=== PATIENT | female | born 1985 | race Caucasian/White ===

== ENCOUNTER 2017-04-17 21:44 | Emergency (ER) | payer SELFPAY | END 2017-04-17 22:00 | disposition left against medical advice (07) | LOC: ED 21:44 | DX: Z53.21 Procedure and treatment not carried out due to patient leaving prior to being seen by health care provider (principal) ==

== ENCOUNTER 2017-06-01 18:59 | Emergency (ER) | payer SELFPAY ==
[2017-06-01 19:54] LABS: MUDS CUTOFF CONCENTRATIONS CUTOFF CONC BELOW:
[2017-06-01 19:56] LABS: BASOPHILS # (AUTO) 0.1 10^3/uL (0.0-0.1); EOSINOPHILS # (AUTO) 0.1 10^3/uL (0.0-0.7); EOSINOPHILS % (AUTO) 1.2 %; HGB - HEMOGLOBIN 13.3 g/dL (12.0-16.0); LYMPHOCYTES # (AUTO) 1.7 10^3/uL (1.5-3.5); LYMPHOCYTES % (AUTO) 23.4 %; MEAN CORPUSCULAR HEMOGLOBIN 29.6 pg (27.0-31.0); MEAN CORPUSCULAR HGB CONC 32.8 g/dL (32.0-36.0); MEAN CORPUSCULAR VOLUME 90.4 fL (81.0-99.0); MEAN PLATELET VOLUME 7.1 fL (7.9-10.8); MONOCYTES # (AUTO) 0.5 10^3/uL (0.0-1.0); MONOCYTES % (AUTO) 6.5 %; NEUTROPHILS # (AUTO) 4.9 10^3/uL (1.5-6.6); NEUTROPHILS % (AUTO) 67.9 %; PLT - PLATELET COUNT 289 10^3/uL (130-450); RED BLOOD COUNT 4.49 10^6/uL (4.20-5.40); RED CELL DISTRIBUTION WIDTH 11.8 % (12.0-15.0); WHITE BLOOD COUNT 7.2 x10^3/uL (4.8-10.8)
[2017-06-01 20:04] LABS: BUN - BLOOD UREA NITROGEN 16 mg/dL (6-20); CALCIUM 9.3 mg/dL (8.5-10.3); CARBON DIOXIDE - CO2 25 mmol/L (21-32); CHLORIDE 104 mmol/L (101-111); CREATININE 0.7 mg/dL (0.4-1.0); GFR - MDRD 98 (>89); GLUCOSE 95 mg/dL (70-100); SODIUM 138 mmol/L (135-145)
[2017-06-01 20:09] LABS: HCG UR QUAL NEGATIVE
[2017-06-01] MEDS ORDERED: OLANZapine 10 MG VIAL IM STA (20:10)
[2017-06-01 20:15] LABS: AMPHETAMINE SCREEN,URINE POSITIVE (NEGATIVE); BENZODIAZEPINES SCREEN, URINE NEGATIVE (NEGATIVE); COCAINE SCREEN URINE NEGATIVE (NEGATIVE); METHADONE SCREEN, URINE NEGATIVE (NEGATIVE); METHAMPHETAMINES SCREEN, URINE POSITIVE (NEGATIVE); OPIATE SCREEN, URINE NEGATIVE (NEGATIVE); OXYCODONE SCREEN, URINE NEGATIVE (NEGATIVE); PROPOXYPHENE SCREEN, URINE NEGATIVE (NEGATIVE); TRICYCLIC ANTIDEPRESSANT,URINE NEGATIVE (NEGATIVE)
--- NOTE | 2017-06-02 00:42 | ED Physician Documentation ---
PD HPI MHE - Stated complaint Stated Complaint: MHE, MIGRAINE - Chief complaint Chief Complaint: Neuro - History obtained from History obtained from: Patient, Family, EMS - History of Present Illness Primary symptom: Psychosis, Aggressive behavior Timing - onset: Today Contributing factors: Substance abuse - drugs Similar symptoms before: No diagnosis Recently seen: Not recently seen - Additional information Additional information: Patient is a 31 year old female with unclear past medical history who is being brought in to the emergency department for agitation and altered mental status. Patient was reportedly delusion make quotations about god. Police were called to the house of the patient and they were bringing in the patient for evaluation. After patient was brought in she ran out side and made multiple comments about GOD, and was having florid delusion. Review of Systems Unable to obtain: Uncooperative PD PAST MEDICAL HISTORY - Past Medical History Past Medical History: Yes Respiratory: Asthma Other Past Medical History: Unkown HX- pt. not forthcoming. Per mother on "pain mgt." Vicodin abuse. - Past Surgical History Past Surgical History: Yes - Present Medications Home Medications: Ambulatory Orders Medication Instructions Recorded Confirmed Home Medications Unobtainable 06/01/17 06/01/17 [HOME MEDICATIONS UNOBTAINABLE] - Allergies Allergies/Adverse Reactions: Allergies Allergy/AdvReac Type Severity Reaction Status Date / Time ampicillin Allergy Hives Verified 06/01/17 23:45 - Social History Does the pt smoke?: Yes Smoking Status: Current every day smoker Does the pt drink ETOH?: No Does the pt have substance abuse?: Yes Substance Use and Type: Meth, Prescription Pills - Immunizations Immunizations are current?: No - POLST Patient has POLST: No PD ED PE NORMAL - HEENT HEENT: Atraumatic - Cardiac Cardiac: RRR - Respiratory Respiratory: No respiratory distress - Abdomen Abdomen: Soft, Non distended - Extremities Extremities: No deformity - Neuro Neuro: No motor deficit Verbal: Confused PD ED PE EXPANDED - General General: Alert - Psych Psych: Agitated, Delusions Results - Vitals Vitals: Vital Signs - 24 hr 06/01/17 06/01/17 06/01/17 19:20 20:45 21:25 Temperature Heart Rate 111 H 82 83 Respiratory 20 18 16 Rate Blood Pressure 135/87 H 113/77 110/70 O2 Saturation 99 100 100 06/01/17 06/01/17 06/01/17 22:25 23:18 23:55 Temperature Heart Rate 82 79 74 Respiratory 15 16 14 Rate Blood Pressure 110/70 97/56 L 110/60 O2 Saturation 100 100 100 06/02/17 06/02/17 06/02/17 00:40 01:49 02:45 Temperature Heart Rate 70 80 74 Respiratory 16 14 16 Rate Blood Pressure 95/60 117/76 101/64 O2 Saturation 100 100 100 06/02/17 06/02/17 04:50 05:43 Temperature 36.4 C L Heart Rate 84 72 Respiratory 14 16 Rate Blood Pressure 106/74 108/74 O2 Saturation 100 100 Oxygen O2 Source Room air - Labs Labs: Laboratory Tests 06/01/17 06/01/17 06/01/17 19:45 19:45 19:51 WBC 7.2 RBC 4.49 Hgb 13.3 Hct 40.6 MCV 90.4 MCH 29.6 MCHC 32.8 RDW 11.8 L Plt Count 289 MPV 7.1 L Neut # 4.9 Lymph # 1.7 [place] # 0.5 Eos # 0.1 Baso # 0.1 Absolute Nucleated RBC 0.00 Nucleated RBC % 0.0 Sodium Potassium Chloride Carbon Dioxide Anion Gap BUN Creatinine Estimated GFR (MDRD) Glucose Calcium Ur Specific [place] >=1.030 H Urine HCG, Qual NEGATIVE Urine Opiates Screen NEGATIVE Ur Oxycodone Screen NEGATIVE Urine Methadone Screen NEGATIVE Ur Propoxyphene Screen NEGATIVE Ur Barbiturates Screen NEGATIVE Ur Tricyclics Screen NEGATIVE Ur Phencyclidine Scrn NEGATIVE Ur Amphetamine Screen POSITIVE H U Methamphetamines Scrn POSITIVE H U Benzodiazepines Scrn NEGATIVE Urine Cocaine Screen NEGATIVE U Cannabinoids Screen NEGATIVE Ethyl Alcohol 06/01/17 19:51 WBC RBC Hgb Hct MCV MCH MCHC RDW Plt Count MPV Neut # Lymph # [place] # Eos # Baso # Absolute Nucleated RBC Nucleated RBC % Sodium 138 Potassium 3.8 Chloride 104 Carbon Dioxide 25 Anion Gap 9.0 BUN 16 Creatinine 0.7 Estimated GFR (MDRD) 98 Glucose 95 Calcium 9.3 Ur Specific [place] Urine HCG, Qual Urine Opiates Screen Ur Oxycodone Screen Urine Methadone Screen Ur Propoxyphene Screen Ur Barbiturates Screen Ur Tricyclics Screen Ur Phencyclidine Scrn Ur Amphetamine Screen U Methamphetamines Scrn U Benzodiazepines Scrn Urine Cocaine Screen U Cannabinoids Screen Ethyl Alcohol < 5.0 PD MEDICAL DECISION MAKING - ED course Complexity details: reviewed old records, reviewed results, re-evaluated patient , considered differential, d/w patient, d/w family ED course: Patient was seen and examined at bedside. Patient was agitated and was a risk to herself and others and had to be sedated. Patient was treated with 10mg of zyprexa IM. labs were drawn and urine was collected. Patient was positive for methamphetamine. Patient was observed overnight. In the morning, with mother at bedside patient was calm and cooperative. Patient denied suicidal or homicidal ideation. Patient was no longer delusional. Patient's symptoms were drug induced. patient required no further evaluation at this time and was stable for discharge with outpatient follow up. Departure - Departure Disposition: 01 Home, Self Care Clinical Impression: Methamphetamine abuse Condition: Good Instructions: Abuse Meth Abuse and Addiction, ED Stress React Follow-Up: primary,care provider [Other] Comments: Your symptoms last night were likely at least in part due to methamphetamine abuse. It can have multiple negative side effects on your physical and mental health. You should follow up with your doctor this week for further evaluation and care.
[2017-06-02 05:44] VITALS: BP 108/74
== END 2017-06-02 05:46 | disposition home or self-care (01) ==
LOC: ED 18:59
DX: F15.150 Other stimulant abuse with stimulant-induced psychotic disorder with delusions (principal); F17.200 Nicotine dependence, unspecified, uncomplicated
CPT/HCPCS: 36415; 80048; 80306; 80320; 81025; 85025; 96372; 99284; 99285

== ENCOUNTER 2017-06-05 14:49 | Outpatient (CLI) | payer SELFPAY | END 2017-06-05 14:50 | disposition EMS.NT | LOC: EMS 14:49 | PROVIDERS: ATTEND Surgery | DX: R46.89 Other symptoms and signs involving appearance and behavior (principal) ==

== ENCOUNTER 2017-07-01 01:49 | Emergency (ER) | payer SELFPAY ==
[2017-07-01 01:58] VITALS: BP 124/92
[2017-07-01 02:29] LABS: BILIRUBIN,URINE NEGATIVE (NEGATIVE); GLUCOSE, URINE (UA) NEGATIVE (NEGATIVE); KETONES,URINE (UA) TRACE mg/dL (NEGATIVE); LEUKOCYTE ESTERASE, URINE NEGATIVE (NEGATIVE); NITRITE,URINE NEGATIVE (NEGATIVE); OCCULT BLOOD,URINE MODERATE (NEGATIVE); PH,URINE 6.5 PH (5.0-7.5); PROTEIN,URINE NEGATIVE (NEGATIVE); UROBILINOGEN,URINE 4 E.U./dL (NORMAL)
[2017-07-01 02:35] LABS: CLARITY,URINE CLEAR (CLEAR); HCG UR QUAL NEGATIVE
[2017-07-01 02:37] LABS: BACTERIA,URINE Moderate /HPF (None Seen); MUCUS,URINE Moderate Strands; SQUAMOUS EPITHELIAL CELL,UR FEW Squamous (<= Few)
--- NOTE | 2017-07-01 02:49 | ED Physician Documentation ---
PD HPI SKIN - Stated complaint Stated Complaint: BACK RASH - Chief complaint Chief Complaint: Wound - History obtained from History obtained from: Patient, Friend - History of Present Illness Timing - onset: Chronic Timing - details: Gradual onset Location: Back Quality / character: Painful Associated symptoms: No: Fever Similar symptoms before: No diagnosis Recently seen: Not recently seen - Additional information Additional information: patient is a 32 year old female with unknown past medical history who is presenting to the emergency department for multiple complaints. patient states that she wanted to know why she had a rash on her back. She also wanted blood tests to see if everything was in balance. Patient also stated that sometimes she did not urinate enough and her stools were not regular. Patient appeared to be under the influence of some type of sympathomimetic Review of Systems Unable to obtain: Intoxicated PD PAST MEDICAL HISTORY - Past Medical History Past Medical History: Yes Respiratory: Asthma Psych: Other Other Past Medical History: Drug abuse - Past Surgical History Past Surgical History: Yes - Present Medications Home Medications: Ambulatory Orders Medication Instructions Recorded Confirmed Home Medications Unobtainable 06/01/17 06/01/17 [HOME MEDICATIONS UNOBTAINABLE] - Allergies Allergies/Adverse Reactions: Allergies Allergy/AdvReac Type Severity Reaction Status Date / Time ampicillin Allergy Hives Verified 07/01/17 01:57 - Social History Does the pt smoke?: Yes Smoking Status: Current every day smoker Does the pt drink ETOH?: No Does the pt have substance abuse?: Yes - Immunizations Immunizations are current?: No - POLST Patient has POLST: No PD ED PE NORMAL - Vitals Vital signs reviewed: Yes - General General: Alert and oriented X 3 - HEENT HEENT: Atraumatic - Cardiac Cardiac: RRR - Respiratory Respiratory: No respiratory distress - Abdomen Abdomen: Non distended - Neuro Neuro: No motor deficit, Normal speech PD ED PE EXPANDED - Derm Derm: Rash (folliculitis on patient's back and arms, ), Pick biswas - GCS Eye Opening: Spontaneous Motor: Obeys Commands Verbal: Oriented Total: 15 - Psych Psych: Flight of ideas Results - Vitals Vitals: Vital Signs - 24 hr 07/01/17 01:54 Heart Rate 98 Respiratory 16 Rate Blood Pressure 124/92 H O2 Saturation 100 Oxygen O2 Source Room air - Labs Labs: Laboratory Tests 07/01/17 02:07 Urine Color YELLOW Urine Clarity CLEAR Urine pH 6.5 Ur Specific [place] 1.020 Urine Protein NEGATIVE Urine Glucose (UA) NEGATIVE Urine Ketones TRACE Urine Occult Blood MODERATE H Urine Nitrite NEGATIVE Urine Bilirubin NEGATIVE Urine Urobilinogen 4 H Ur Leukocyte Esterase NEGATIVE Urine RBC 6-10 H Urine WBC 0-3 Ur Squamous Epith Cells FEW Squamous Urine Bacteria Moderate H Urine Mucus Moderate Strands Ur Microscopic Review INDICATED Urine Culture Comments INDICATED Urine HCG, Qual NEGATIVE PD MEDICAL DECISION MAKING - ED course Complexity details: reviewed old records, reviewed results, considered differential, d/w patient ED course: Patient was seen and examined at bedside. Urine was collected and sent. patient walked out while awaiting urinalysis results. patient was with her friend and no need to restrain the patient. Departure - Departure Disposition: ED [place] Clinical Impression: Folliculitis Condition: Good
== END 2017-07-01 02:05 | disposition left against medical advice (07) ==
LOC: ED 01:49
DX: L73.9 Follicular disorder, unspecified (principal); F17.200 Nicotine dependence, unspecified, uncomplicated
CPT/HCPCS: 81001; 81003; 81025; 87077; 87086; 99282

== ENCOUNTER 2017-07-05 01:58 | Outpatient (CLI) | payer SELFPAY | END 2017-07-05 01:59 | disposition EMS.NT | LOC: EMS 01:58 | PROVIDERS: ATTEND Surgery | DX: R46.89 Other symptoms and signs involving appearance and behavior (principal); R41.82 Altered mental status, unspecified ==

== ENCOUNTER 2017-07-05 03:12 | Outpatient (CLI) | payer SELFPAY | END 2017-07-05 03:13 | disposition critical access hospital (66) | LOC: EMS 03:12 | PROVIDERS: ATTEND Surgery | DX: Z03.89 Encounter for observation for other suspected diseases and conditions ruled out (principal) | CPT/HCPCS: A0425; A0429 ==

== ENCOUNTER 2017-07-05 03:50 | Emergency (ER) | payer SELFPAY ==
[2017-07-05] MEDS ORDERED: NITROFURANTOIN MACRO 100 MG CAPSULE PO STA (03:54)
[2017-07-05 03:55] VITALS: BP 133/88
--- NOTE | 2017-07-05 03:57 | ED Physician Documentation ---
History of Present Illness - Stated complaint Stated Complaint: DID METH, WANTS HIV TEST - Chief complaint Chief Complaint: MHE - History obtained from History obtained from: Patient, EMS - History of Present Illness Timing: Today - Additonal information Additional information: Patient is a 32 year old female who as brought in by ems who reportedly asked for an HIV test. EMS was called to the house multiple times this evening for various complaints so this time they decided to bring the patient in. patient admitted to using meth before calling ems. Upon initial evaluation in the emergency department patient states that she gets anxious and has trouble sleeping and would like some ativan or trazadone. patient states that she had a prescription but is unable to "transfer it over" since she moved. Patient denied any other physical complaints. Review of Systems Unable to obtain: Intoxicated PD PAST MEDICAL HISTORY - Past Medical History Respiratory: Asthma Psych: Other - Past Surgical History Past Surgical History: Yes - Present Medications Home Medications: Ambulatory Orders Medication Instructions Recorded Confirmed Nitrofurantoin Monohyd/M-Cryst 100 mg PO BID 5 Days capsule 07/05/17 [Macrobid 100 mg Capsule] - Allergies Allergies/Adverse Reactions: Allergies Allergy/AdvReac Type Severity Reaction Status Date / Time ampicillin Allergy Hives Verified 07/05/17 03:54 - Social History Does the pt smoke?: Yes Smoking Status: Current every day smoker Does the pt drink ETOH?: No Does the pt have substance abuse?: Yes - Immunizations Immunizations are current?: No - POLST Patient has POLST: No PD ED PE NORMAL - Vitals Vital signs reviewed: Yes - General General: No acute distress - HEENT HEENT: Atraumatic, Moist mucous membranes - Cardiac Cardiac: RRR - Respiratory Respiratory: No respiratory distress - Abdomen Abdomen: Non distended - Extremities Extremities: No deformity - Neuro Neuro: No motor deficit, Normal speech Eye Opening: Spontaneous PD ED PE EXPANDED - General General: Alert - Psych Psych: Other (Awake and alert but under the influence of sympathomimetic) Results - Vitals Vitals: Vital Signs - 24 hr 07/05/17 03:53 Temperature 36.7 C Heart Rate 93 Respiratory 18 Rate Blood Pressure 133/88 H O2 Saturation 99 Oxygen O2 Source Room air PD MEDICAL DECISION MAKING - ED course Complexity details: reviewed old records, reviewed results, re-evaluated patient , considered differential, d/w patient ED course: patient was seen and examined at bedside. previous notes were reviewed and patient did have a positive urine culture and was treated with macrobid. Patient was made aware that she would not be getting trazadone and the first thing to help with the insomnia would be to stop taking meth. Patient required no further inpatient testing and was stable for discharge with outpatient follow up. Departure - Departure Disposition: 01 Home, Self Care Clinical Impression: Methamphetamine abuse Condition: Stable Instructions: Abuse Meth Abuse and Addiction Follow-Up: primary,care provider [Other] - Within 3 Days Prescriptions: Nitrofurantoin Monohyd/M-Cryst [Macrobid 100 mg Capsule] 100 mg PO BID 5 Days capsule Comments: Your anxiety and insomnia is likely at least in part due to your methamphetamine abuse. It would not be jackson to start trazadone or another depressant at this time. The most important thing you can do is stop taking meth. You will be treated for a urinary tract infection which was found last time your were here. You will need to follow up with your doctor for your trazadone prescription. Discharge Date/Time: 07/05/17 04:05
== END 2017-07-05 04:05 | disposition home or self-care (01) ==
LOC: EDUNIT# → ED 03:50
DX: F15.10 Other stimulant abuse, uncomplicated (principal); F41.9 Anxiety disorder, unspecified; G47.00 Insomnia, unspecified; J45.909 Unspecified asthma, uncomplicated; F17.200 Nicotine dependence, unspecified, uncomplicated
CPT/HCPCS: 99283; A9270

== ENCOUNTER 2017-09-22 14:42 | Emergency (ER) | payer MEDICAID ==
[2017-09-22 15:14] LABS: BASOPHILS # (AUTO) 0.1 10^3/uL (0.0-0.1); BASOPHILS % (AUTO) 0.6 %; EOSINOPHILS # (AUTO) 0.1 10^3/uL (0.0-0.7); HGB - HEMOGLOBIN 14.6 g/dL (12.0-16.0); LYMPHOCYTES # (AUTO) 1.6 10^3/uL (1.5-3.5); LYMPHOCYTES % (AUTO) 17.1 %; MEAN CORPUSCULAR HEMOGLOBIN 30.4 pg (27.0-31.0); MEAN CORPUSCULAR HGB CONC 33.1 g/dL (32.0-36.0); MEAN CORPUSCULAR VOLUME 91.9 fL (81.0-99.0); MEAN PLATELET VOLUME 6.8 fL (7.9-10.8); MONOCYTES # (AUTO) 0.4 10^3/uL (0.0-1.0); MONOCYTES % (AUTO) 4.2 %; NEUTROPHILS % (AUTO) 77.1 %; PLT - PLATELET COUNT 361 10^3/uL (130-450); RED BLOOD COUNT 4.81 10^6/uL (4.20-5.40); RED CELL DISTRIBUTION WIDTH 11.9 % (12.0-15.0); WHITE BLOOD COUNT 9.1 x10^3/uL (4.8-10.8)
[2017-09-22 15:29] LABS: MUDS CUTOFF CONCENTRATIONS CUTOFF CONC BELOW:
[2017-09-22 15:34] LABS: GLUCOSE, URINE (UA) NEGATIVE (NEGATIVE); KETONES,URINE (UA) TRACE mg/dL (NEGATIVE); LEUKOCYTE ESTERASE, URINE NEGATIVE (NEGATIVE); NITRITE,URINE NEGATIVE (NEGATIVE); OCCULT BLOOD,URINE NEGATIVE (NEGATIVE); PROTEIN,URINE TRACE mg/dL (NEGATIVE); UROBILINOGEN,URINE 0.2 (NORMAL) E.U./dL (NORMAL)
[2017-09-22 15:38] LABS: ALBUMIN 3.9 g/dL (3.2-5.5); ALKALINE PHOSPHATASE 59 IU/L (42-121); ALT ALANINE AMINOTRANSFERASE 19 IU/L (10-60); AST ASPARTATE AMINOTRANSFERASE 18 IU/L (10-42); BILIRUBIN,TOTAL 0.6 mg/dL (0.2-1.0); BUN - BLOOD UREA NITROGEN 13 mg/dL (6-20); CALCIUM 9.5 mg/dL (8.5-10.3); CARBON DIOXIDE - CO2 29 mmol/L (21-32); CHLORIDE 101 mmol/L (101-111); CREATININE 0.7 mg/dL (0.4-1.0); GFR - MDRD 97 (>89); GLUCOSE 69 mg/dL (70-100); LIPASE 25 U/L (22-51); SALICYLATE < 6.0 mg/dL; SODIUM 135 mmol/L (135-145); TOTAL PROTEIN 7.9 g/dL (6.7-8.2)
[2017-09-22 15:39] LABS: ACETAMINOPHEN < 10 ug/mL (10-30)
[2017-09-22 15:39] LABS: BILIRUBIN,URINE NEGATIVE (NEGATIVE); CLARITY,URINE CLOUDY (CLEAR); HCG UR QUAL NEGATIVE; ICTOTEST,URINE NEGATIVE
[2017-09-22 15:51] LABS: AMPHETAMINE SCREEN,URINE POSITIVE (NEGATIVE); BENZODIAZEPINES SCREEN, URINE NEGATIVE (NEGATIVE); COCAINE SCREEN URINE NEGATIVE (NEGATIVE); METHADONE SCREEN, URINE NEGATIVE (NEGATIVE); METHAMPHETAMINES SCREEN, URINE POSITIVE (NEGATIVE); OPIATE SCREEN, URINE NEGATIVE (NEGATIVE); OXYCODONE SCREEN, URINE NEGATIVE (NEGATIVE); PROPOXYPHENE SCREEN, URINE NEGATIVE (NEGATIVE); TRICYCLIC ANTIDEPRESSANT,URINE NEGATIVE (NEGATIVE)
[2017-09-22 15:54] LABS: BACTERIA,URINE None Seen /HPF (None Seen); CASTS, URINE 0-2 Hyaline Casts /LPF; CRYSTALS,URINE 3-5 Uric Acid /LPF; RBC,URINE 0-5 /HPF (0-5); SQUAMOUS EPITHELIAL CELL,UR MANY Squamous (<= Few)
--- NOTE | 2017-09-22 16:03 | ED Physician Documentation ---
PD HPI MHE - Stated complaint Stated Complaint: MHE - Chief complaint Chief Complaint: MHE - History obtained from History obtained from: Patient, Police - History of Present Illness Primary symptom: Suicidal ideation, Homicidal ideation, Manic, Aggressive behavior Timing - onset: Today Pain level max: 0 Pain level now: 0 Contributing factors: Other (unknown) Similar symptoms before: Diagnosis (depression as a teenager, was on celexa) Recently seen: Not recently seen - Additional information Additional information: Patient is a 32-year-old female who presents to the emergency department after being called out for a violent episode by police. Police state that they witnessed her hallucinating and being aggressive. They placed her on an involuntary mental health hold and brought her to the emergency department. She is cooperative here. She denies any suicidal or homicidal ideation to me. She states that she has never attempted suicide before. States that she uses Adderall, but denies any methamphetamine use. Review of Systems Ten Systems: 10 systems reviewed and negative Constitutional: denies: Fever, Chills Ears: denies: Ear pain Nose: denies: Rhinorrhea / runny nose, Congestion Throat: denies: Sore throat Cardiac: denies: Chest pain / pressure Respiratory: denies: Cough, Wheezing GI: denies: Nausea, Vomiting, Diarrhea Skin: denies: Rash Musculoskeletal: denies: Neck pain, Back pain Neurologic: denies: Focal weakness, Numbness, Headache Psychiatric: reports: Hallucinations (States often has racing thoughts and sometimes talks to people who were not there, but she states that she does not think that she is talking to anybody during these episodes). denies: Suicidal, Homicidal PD PAST MEDICAL HISTORY - Past Medical History Past Medical History: Yes Respiratory: Asthma Psych: Other - Past Surgical History Past Surgical History: Yes - Present Medications Home Medications: Ambulatory Orders Medication Instructions Recorded Confirmed Nitrofurantoin Monohyd/M-Cryst 100 mg PO BID 5 Days capsule 07/05/17 [Macrobid 100 mg Capsule] - Allergies Allergies/Adverse Reactions: Allergies Allergy/AdvReac Type Severity Reaction Status Date / Time ampicillin Allergy Hives Verified 07/05/17 03:54 - Social History Does the pt smoke?: Yes Smoking Status: Current every day smoker Does the pt drink ETOH?: No Does the pt have substance abuse?: Yes - Immunizations Immunizations are current?: No - POLST Patient has POLST: No PD ED PE NORMAL - Vitals Vital signs reviewed: Yes - General General: Alert and oriented X 3, No acute distress, Well developed/nourished - HEENT HEENT: PERRL, Moist mucous membranes - Neck Neck: Supple, no meningeal sign - Cardiac Cardiac: RRR, Strong equal pulses - Respiratory Respiratory: No respiratory distress, Clear bilaterally - Abdomen Abdomen: Soft, Non tender, Non distended - Derm Derm: Warm and dry, No rash - Extremities Extremities: No edema, No calf tenderness / cord - Neuro Neuro: Alert and oriented X 3, melting furnace skimmer 2-12 intact, No motor deficit, No sensory deficit, Normal speech - Psych Psych: Normal mood, Other (Patient is speaking at a normal pace. She does perseverate on ideas, often referring back to Canelo or Nahid. States she has conspiracy theories) Results - Vitals Vitals: Vital Signs - 24 hr 09/22/17 14:44 Temperature 36.8 C Heart Rate 55 L Respiratory 14 Rate Blood Pressure 107/76 O2 Saturation 99 Oxygen O2 Source Room air - Labs Labs: Laboratory Tests 09/22/17 09/22/17 09/22/17 15:00 15:07 15:07 WBC 9.1 RBC 4.81 Hgb 14.6 Hct 44.2 MCV 91.9 MCH 30.4 MCHC 33.1 RDW 11.9 L Plt Count 361 MPV 6.8 L Neut # (Auto) 7.0 H Lymph # (Auto) 1.6 [place] # (Auto) 0.4 Eos # (Auto) 0.1 Baso # (Auto) 0.1 Absolute Nucleated RBC 0.01 Nucleated RBC % 0.1 Sodium 135 Potassium 3.5 Chloride 101 Carbon Dioxide 29 Anion Gap 5.0 L BUN 13 Creatinine 0.7 Estimated GFR (MDRD) 97 Glucose 69 L Calcium 9.5 Total Bilirubin 0.6 AST 18 ALT 19 Alkaline Phosphatase 59 Total Protein 7.9 Albumin 3.9 Globulin 4.0 Albumin/Globulin Ratio 1.0 Lipase 25 TSH Urine Color Urine Clarity Urine pH Ur Specific [place] Urine Protein Urine Glucose (UA) Urine Ketones Urine Occult Blood Urine Nitrite Urine Bilirubin Urine Urobilinogen Ur Leukocyte Esterase Urine RBC Urine WBC Ur Squamous Epith Cells Urine Crystals Urine Bacteria Urine Casts Ur Microscopic Review Urine Culture Comments Urine HCG, Qual Salicylates < 6.0 Urine Opiates Screen NEGATIVE Ur Oxycodone Screen NEGATIVE Urine Methadone Screen NEGATIVE Ur Propoxyphene Screen NEGATIVE Acetaminophen < 10 L Ur Barbiturates Screen NEGATIVE Ur Tricyclics Screen NEGATIVE Ur Phencyclidine Scrn NEGATIVE Ur Amphetamine Screen POSITIVE H U Methamphetamines Scrn POSITIVE H U Benzodiazepines Scrn NEGATIVE Urine Cocaine Screen NEGATIVE U Cannabinoids Screen NEGATIVE Ethyl Alcohol < 5.0 09/22/17 09/22/17 15:07 15:20 WBC RBC Hgb Hct MCV MCH MCHC RDW Plt Count MPV Neut # (Auto) Lymph # (Auto) [place] # (Auto) Eos # (Auto) Baso # (Auto) Absolute Nucleated RBC Nucleated RBC % Sodium Potassium Chloride Carbon Dioxide Anion Gap BUN Creatinine Estimated GFR (MDRD) Glucose Calcium Total Bilirubin AST ALT Alkaline Phosphatase Total Protein Albumin Globulin Albumin/Globulin Ratio Lipase TSH 1.91 Urine Color DARK YELLOW Urine Clarity CLOUDY Urine pH 6.0 Ur Specific [place] >=1.030 H Urine Protein TRACE Urine Glucose (UA) NEGATIVE Urine Ketones TRACE Urine Occult Blood NEGATIVE Urine Nitrite NEGATIVE Urine Bilirubin NEGATIVE Urine Urobilinogen 0.2 (NORMAL) Ur Leukocyte Esterase NEGATIVE Urine RBC 0-5 Urine WBC 0-3 Ur Squamous Epith Cells MANY Squamous H Urine Crystals 3-5 Uric Acid Urine Bacteria None Seen Urine Casts 0-2 Hyaline Casts Ur Microscopic Review INDICATED Urine Culture Comments NOT INDICATED Urine HCG, Qual NEGATIVE Salicylates Urine Opiates Screen Ur Oxycodone Screen Urine Methadone Screen Ur Propoxyphene Screen Acetaminophen Ur Barbiturates Screen Ur Tricyclics Screen Ur Phencyclidine Scrn Ur Amphetamine Screen U Methamphetamines Scrn U Benzodiazepines Scrn Urine Cocaine Screen U Cannabinoids Screen Ethyl Alcohol PD MEDICAL DECISION MAKING - ED course Complexity details: reviewed results, re-evaluated patient, considered differential, d/w patient ED course: Patient is a 32-year-old female who is brought in by the police today for aggression and psychosis. She was cooperative in the emergency department initially, but did become angry and belligerent at times. She also makes statements that do not make much sense and has pressured speech. She was placed on an involuntary mental health hold by the police, therefore [facility] was contacted and the [facility] was dispatched. Isaac [facility], evaluated the patient and was placed her on an involuntary psychiatric hold and patient was accepted to [facility] [place] [facility]. [employer] forms filled out. Patient was given Zyprexa while in the emergency department for agitation. She voluntarily took the intramuscular Zyprexa. This document was made in part using voice recognition software. While efforts are made to proofread this document, sound alike and grammatical errors may occur. - Sepsis Event Vital Signs: Vital Signs - 24 hr 09/22/17 14:44 Temperature 36.8 C Heart Rate 55 L Respiratory 14 Rate Blood Pressure 107/76 O2 Saturation 99 Oxygen O2 Source Room air Departure - Departure Disposition: 65 Psych Hosp/Unit DC/Xfer Clinical Impression: Methamphetamine abuse Psychosis Qualifiers: Psychosis type: unspecified psychosis type Qualified Code(s): F29 - Unspecified psychosis not due to a substance or known physiological condition Condition: Stable
[2017-09-22] MEDS ORDERED: OLANZapine 10 MG VIAL IM STA (22:10)
[2017-09-23] MEDS ORDERED: OLANZapine ODT 5 MG TABLET TL ONE (10:23)
[2017-09-23 10:46] VITALS: BP 104/67
== END 2017-09-23 10:37 ==
LOC: ED 14:42
DX: F15.159 Other stimulant abuse with stimulant-induced psychotic disorder, unspecified (principal); F17.200 Nicotine dependence, unspecified, uncomplicated
CPT/HCPCS: 36415; 80053; 80306; 80307; 80320; 80329; 81001; 81025; 83690; 84443; 85025; 96372; 99284; 99285; A9270; 81003; 87086; 99283

== ENCOUNTER 2017-12-16 09:14 | Emergency (ER) | payer MEDICAID ==
[2017-12-16 10:36] LABS: MUDS CUTOFF CONCENTRATIONS CUTOFF CONC BELOW:
[2017-12-16 10:40] LABS: BILIRUBIN,URINE NEGATIVE (NEGATIVE); GLUCOSE, URINE (UA) NEGATIVE (NEGATIVE); KETONES,URINE (UA) NEGATIVE (NEGATIVE); LEUKOCYTE ESTERASE, URINE NEGATIVE (NEGATIVE); NITRITE,URINE POSITIVE (NEGATIVE); OCCULT BLOOD,URINE TRACE-INTA (NEGATIVE); PROTEIN,URINE NEGATIVE (NEGATIVE); UROBILINOGEN,URINE 0.2 (NORMAL) E.U./dL (NORMAL)
[2017-12-16 10:45] LABS: CLARITY,URINE CLOUDY (CLEAR); HCG UR QUAL NEGATIVE
[2017-12-16 10:50] LABS: BACTERIA,URINE Many /HPF (None Seen); RBC,URINE 0-5 /HPF (0-5); SQUAMOUS EPITHELIAL CELL,UR MANY Squamous (<= Few)
[2017-12-16 11:06] LABS: BASOPHILS % (AUTO) 0.6 %; EOSINOPHILS # (AUTO) 0.2 10^3/uL (0.0-0.7); EOSINOPHILS % (AUTO) 3.3 %; HGB - HEMOGLOBIN 13.9 g/dL (12.0-16.0); LYMPHOCYTES # (AUTO) 1.8 10^3/uL (1.5-3.5); LYMPHOCYTES % (AUTO) 34.3 %; MEAN CORPUSCULAR HEMOGLOBIN 30.7 pg (27.0-31.0); MEAN CORPUSCULAR VOLUME 90.5 fL (81.0-99.0); MEAN PLATELET VOLUME 7.3 fL (7.9-10.8); MONOCYTES # (AUTO) 0.3 10^3/uL (0.0-1.0); MONOCYTES % (AUTO) 4.9 %; NEUTROPHILS % (AUTO) 56.9 %; PLT - PLATELET COUNT 252 10^3/uL (130-450); RED BLOOD COUNT 4.51 10^6/uL (4.20-5.40); RED CELL DISTRIBUTION WIDTH 12.2 % (12.0-15.0); WHITE BLOOD COUNT 5.3 x10^3/uL (4.8-10.8)
[2017-12-16 11:12] LABS: AMPHETAMINE SCREEN,URINE POSITIVE (NEGATIVE); BENZODIAZEPINES SCREEN, URINE NEGATIVE (NEGATIVE); COCAINE SCREEN URINE NEGATIVE (NEGATIVE); METHADONE SCREEN, URINE NEGATIVE (NEGATIVE); METHAMPHETAMINES SCREEN, URINE POSITIVE (NEGATIVE); OPIATE SCREEN, URINE POSITIVE (NEGATIVE); OXYCODONE SCREEN, URINE NEGATIVE (NEGATIVE); PROPOXYPHENE SCREEN, URINE NEGATIVE (NEGATIVE); TRICYCLIC ANTIDEPRESSANT,URINE POSITIVE (NEGATIVE)
[2017-12-16 11:14] LABS: ALBUMIN 4.3 g/dL (3.2-5.5); ALBUMIN/GLOBULIN RATIO 1.4 (1.0-2.2); ALKALINE PHOSPHATASE 45 IU/L (42-121); ALT ALANINE AMINOTRANSFERASE 17 IU/L (10-60); AST ASPARTATE AMINOTRANSFERASE 19 IU/L (10-42); BILIRUBIN,TOTAL 0.7 mg/dL (0.2-1.0); BUN - BLOOD UREA NITROGEN 12 mg/dL (6-20); CALCIUM 8.9 mg/dL (8.5-10.3); CARBON DIOXIDE - CO2 25 mmol/L (21-32); CHLORIDE 105 mmol/L (101-111); CREATININE 0.6 mg/dL (0.4-1.0); GFR - MDRD 116 (>89); GLUCOSE 90 mg/dL (70-100); LIPASE 29 U/L (22-51); SALICYLATE < 6.0 mg/dL; SODIUM 137 mmol/L (135-145); TOTAL PROTEIN 7.4 g/dL (6.7-8.2)
[2017-12-16 11:16] LABS: ACETAMINOPHEN < 10 ug/mL (10-30)
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
--- NOTE | 2017-12-16 19:58 | ED Physician Documentation ---
ED Addendum - Addendum Addendum: 12/16/17 19:57The patient has been stable, the patient was medically cleared by Dr. Tyler and the patient was seen by the [facility]. The patient has been detained and a bed has been arranged. The patient will be transported to a mental health facility for ongoing management of her acute condition
[2017-12-16 20:22] VITALS: BP 112/70
== END 2017-12-16 23:25 ==
LOC: ED 09:14
DX: Z04.6 Encounter for general psychiatric examination, requested by authority (principal); F15.10 Other stimulant abuse, uncomplicated; F21 Schizotypal disorder; F22 Delusional disorders; F17.200 Nicotine dependence, unspecified, uncomplicated
CPT/HCPCS: 36415; 80053; 80306; 80307; 80320; 80329; 81001; 81003; 81025; 83690; 85025; 87086; 99284

== ENCOUNTER 2018-03-17 13:38 | Emergency (ER) | payer MEDICAID ==
--- NOTE | 2018-03-17 14:16 | ED Physician Documentation ---
PD HPI MHE - Stated complaint Stated Complaint: SI - Chief complaint Chief Complaint: MHE - History obtained from History obtained from: Patient - History of Present Illness Primary symptom: Suicidal ideation (32-year-old woman with history of schizophrenia and bipolar disorder presents with an exacerbation of suicidal ideation with thoughts to hang herself. She is been out of her meds for a few weeks because their car is not running and she has not been able to get to the clinic.) Review of Systems Ten Systems: 10 systems reviewed and negative Constitutional: reports: Reviewed and negative Nose: reports: Reviewed and negative Throat: reports: Reviewed and negative Cardiac: reports: Reviewed and negative PD PAST MEDICAL HISTORY - Past Medical History Respiratory: Asthma Psych: Other - Past Surgical History Past Surgical History: Yes - Allergies Allergies/Adverse Reactions: Allergies Allergy/AdvReac Type Severity Reaction Status Date / Time ampicillin Allergy Hives Verified 03/17/18 13:49 - Living Situation Living Situation: reports: With family - Social History Does the pt smoke?: Yes Smoking Status: Current every day smoker Does the pt drink ETOH?: No Does the pt have substance abuse?: Yes - Immunizations Immunizations are current?: No - POLST Patient has POLST: No PD ED PE NORMAL - Vitals Vital signs reviewed: Yes - General General: Alert and oriented X 3, No acute distress - HEENT HEENT: PERRL, EOMI - Neck Neck: Supple, no meningeal sign, No bony TTP - Cardiac Cardiac: RRR, No murmur - Respiratory Respiratory: No respiratory distress, Clear bilaterally - Abdomen Abdomen: Normal bowel sounds, Soft, Non tender - Back Back: No CVA TTP, No spinal TTP - Derm Derm: Normal color, Warm and dry - Extremities Extremities: No edema, No calf tenderness / cord - Neuro Neuro: Alert and oriented X 3, Normal speech - Psych Psych: Normal mood, Normal affect Results - Vitals Vitals: Vital Signs - 24 hr 03/17/18 13:41 Temperature 36.6 C Heart Rate 96 Respiratory 16 Rate Blood Pressure 118/79 O2 Saturation 100 Oxygen O2 Source Room air - Labs Labs: Laboratory Tests 03/17/18 03/17/18 03/17/18 14:12 14:12 14:12 WBC 8.0 RBC 4.62 Hgb 14.2 Hct 41.4 MCV 89.6 MCH 30.7 MCHC 34.2 RDW 11.7 L Plt Count 269 MPV 7.8 L Neut # (Auto) 6.0 Lymph # (Auto) 1.6 [place] # (Auto) 0.3 Eos # (Auto) 0.1 Baso # (Auto) 0.0 Absolute Nucleated RBC 0.00 Nucleated RBC % 0.0 Sodium 138 Potassium 2.9 L Chloride 105 Carbon Dioxide 25 Anion Gap 8.0 BUN 8 Creatinine 0.5 Estimated GFR (MDRD) 143 Glucose 114 H Calcium 8.4 L Total Bilirubin 0.6 AST 18 ALT 13 Alkaline Phosphatase 41 L Total Protein 6.9 Albumin 4.1 Globulin 2.8 Albumin/Globulin Ratio 1.5 Lipase 39 TSH 1.04 Urine Color Urine Clarity Urine pH Ur Specific [place] Urine Protein Urine Glucose (UA) Urine Ketones Urine Occult Blood Urine Nitrite Urine Bilirubin Urine Urobilinogen Ur Leukocyte Esterase Urine RBC Urine WBC Ur Squamous Epith Cells Urine Bacteria Urine Mucus Ur Microscopic Review Urine Culture Comments Urine HCG, Qual Salicylates < 6.0 Urine Opiates Screen Ur Oxycodone Screen Urine Methadone Screen Ur Propoxyphene Screen Acetaminophen < 10 L Ur Barbiturates Screen Ur Tricyclics Screen Ur Phencyclidine Scrn Ur Amphetamine Screen U Methamphetamines Scrn U Benzodiazepines Scrn Urine Cocaine Screen U Cannabinoids Screen Ethyl Alcohol < 5.0 03/17/18 14:20 WBC RBC Hgb Hct MCV MCH MCHC RDW Plt Count MPV Neut # (Auto) Lymph # (Auto) [place] # (Auto) Eos # (Auto) Baso # (Auto) Absolute Nucleated RBC Nucleated RBC % Sodium Potassium Chloride Carbon Dioxide Anion Gap BUN Creatinine Estimated GFR (MDRD) Glucose Calcium Total Bilirubin AST ALT Alkaline Phosphatase Total Protein Albumin Globulin Albumin/Globulin Ratio Lipase TSH Urine Color YELLOW Urine Clarity CLEAR Urine pH 6.5 Ur Specific [place] >=1.030 H Urine Protein NEGATIVE Urine Glucose (UA) NEGATIVE Urine Ketones NEGATIVE Urine Occult Blood NEGATIVE Urine Nitrite POSITIVE H Urine Bilirubin NEGATIVE Urine Urobilinogen 0.2 (NORMAL) Ur Leukocyte Esterase NEGATIVE Urine RBC 0-5 Urine WBC 0-3 Ur Squamous Epith Cells MOD Squamous H Urine Bacteria Few Urine Mucus Few Strands Ur Microscopic Review INDICATED Urine Culture Comments NOT INDICATED Urine HCG, Qual NEGATIVE Salicylates Urine Opiates Screen NEGATIVE Ur Oxycodone Screen NEGATIVE Urine Methadone Screen NEGATIVE Ur Propoxyphene Screen NEGATIVE Acetaminophen Ur Barbiturates Screen NEGATIVE Ur Tricyclics Screen NEGATIVE Ur Phencyclidine Scrn NEGATIVE Ur Amphetamine Screen POSITIVE H U Methamphetamines Scrn NEGATIVE U Benzodiazepines Scrn NEGATIVE Urine Cocaine Screen NEGATIVE U Cannabinoids Screen NEGATIVE Ethyl Alcohol PD MEDICAL DECISION MAKING - ED course ED course: 32-year-old woman with uncontrolled schizophrenia and bipolar disorder presents with suicidal ideation. Seen by social work and the felt she was high risk and deferred to the [facility] who detained her to [facility] and cobras were completed. Departure - Departure Disposition: 65 Psych Hosp/Unit DC/Xfer Clinical Impression: Suicidal ideation Psychosis Qualifiers: Psychosis type: schizoaffective disorder Schizoaffective disorder type: bipolar Qualified Code(s): F25.0 - Schizoaffective disorder, bipolar type Condition: Serious
[2018-03-17 14:19] LABS: BASOPHILS % (AUTO) 0.4 %; EOSINOPHILS # (AUTO) 0.1 10^3/uL (0.0-0.7); EOSINOPHILS % (AUTO) 1.7 %; HGB - HEMOGLOBIN 14.2 g/dL (12.0-16.0); LYMPHOCYTES # (AUTO) 1.6 10^3/uL (1.5-3.5); LYMPHOCYTES % (AUTO) 19.8 %; MEAN CORPUSCULAR HEMOGLOBIN 30.7 pg (27.0-31.0); MEAN CORPUSCULAR HGB CONC 34.2 g/dL (32.0-36.0); MEAN CORPUSCULAR VOLUME 89.6 fL (81.0-99.0); MEAN PLATELET VOLUME 7.8 fL (7.9-10.8); MONOCYTES # (AUTO) 0.3 10^3/uL (0.0-1.0); MONOCYTES % (AUTO) 3.5 %; NEUTROPHILS % (AUTO) 74.6 %; PLT - PLATELET COUNT 269 10^3/uL (130-450); RED BLOOD COUNT 4.62 10^6/uL (4.20-5.40); RED CELL DISTRIBUTION WIDTH 11.7 % (12.0-15.0)
[2018-03-17] MEDS ORDERED: QUEtiapine 100 MG TABLET PO STA ×2 (14:20→22:34)
[2018-03-17 14:28] LABS: MUDS CUTOFF CONCENTRATIONS CUTOFF CONC BELOW:
[2018-03-17 14:32] LABS: BILIRUBIN,URINE NEGATIVE (NEGATIVE); GLUCOSE, URINE (UA) NEGATIVE (NEGATIVE); KETONES,URINE (UA) NEGATIVE (NEGATIVE); LEUKOCYTE ESTERASE, URINE NEGATIVE (NEGATIVE); NITRITE,URINE POSITIVE (NEGATIVE); OCCULT BLOOD,URINE NEGATIVE (NEGATIVE); PH,URINE 6.5 PH (5.0-7.5); PROTEIN,URINE NEGATIVE (NEGATIVE); UROBILINOGEN,URINE 0.2 (NORMAL) E.U./dL (NORMAL)
[2018-03-17 14:33] LABS: CLARITY,URINE CLEAR (CLEAR); HCG UR QUAL NEGATIVE
[2018-03-17 14:36] LABS: ACETAMINOPHEN < 10 ug/mL (10-30); ALBUMIN 4.1 g/dL (3.2-5.5); ALBUMIN/GLOBULIN RATIO 1.5 (1.0-2.2); ALKALINE PHOSPHATASE 41 IU/L (42-121); ALT ALANINE AMINOTRANSFERASE 13 IU/L (10-60); AST ASPARTATE AMINOTRANSFERASE 18 IU/L (10-42); BILIRUBIN,TOTAL 0.6 mg/dL (0.2-1.0); BUN - BLOOD UREA NITROGEN 8 mg/dL (6-20); CALCIUM 8.4 mg/dL (8.5-10.3); CARBON DIOXIDE - CO2 25 mmol/L (21-32); CHLORIDE 105 mmol/L (101-111); CREATININE 0.5 mg/dL (0.4-1.0); GFR - MDRD 143 (>89); GLUCOSE 114 mg/dL (70-100); LIPASE 39 U/L (22-51); SALICYLATE < 6.0 mg/dL; SODIUM 138 mmol/L (135-145); TOTAL PROTEIN 6.9 g/dL (6.7-8.2)
[2018-03-17 14:55] LABS: AMPHETAMINE SCREEN,URINE POSITIVE (NEGATIVE); BACTERIA,URINE Few /HPF (None Seen); BENZODIAZEPINES SCREEN, URINE NEGATIVE (NEGATIVE); COCAINE SCREEN URINE NEGATIVE (NEGATIVE); METHADONE SCREEN, URINE NEGATIVE (NEGATIVE); METHAMPHETAMINES SCREEN, URINE NEGATIVE (NEGATIVE); MUCUS,URINE Few Strands; OPIATE SCREEN, URINE NEGATIVE (NEGATIVE); OXYCODONE SCREEN, URINE NEGATIVE (NEGATIVE); PROPOXYPHENE SCREEN, URINE NEGATIVE (NEGATIVE); RBC,URINE 0-5 /HPF (0-5); SQUAMOUS EPITHELIAL CELL,UR MOD Squamous (<= Few); TRICYCLIC ANTIDEPRESSANT,URINE NEGATIVE (NEGATIVE)
[2018-03-17] MEDS ORDERED: POTASSIUM BICARB 25 MEQ TABLET PO STA (19:55)
[2018-03-17 23:34] VITALS: BP 105/66
== END 2018-03-17 23:35 ==
LOC: ED 13:38
DX: R45.851 Suicidal ideations (principal); T50.906A Underdosing of unspecified drugs, medicaments and biological substances, initial encounter; F20.9 Schizophrenia, unspecified; F31.9 Bipolar disorder, unspecified; Z91.128 Patient's intentional underdosing of medication regimen for other reason; F17.200 Nicotine dependence, unspecified, uncomplicated
CPT/HCPCS: 36415; 80053; 80306; 80307; 80320; 80329; 81001; 81025; 83690; 84443; 85025; 99284; A9270; 81003; 87086

== ENCOUNTER 2018-06-13 17:46 | Emergency (ER) | payer MEDICAID ==
[2018-06-13] MEDS ORDERED: SODIUM CHLORIDE 0.9% 1,000 ML IV ONE ×2 (17:55→20:47)
[2018-06-13] MEDS ORDERED: LORazepam 2 MG/ML VIAL IVP STA (17:57)
[2018-06-13] MEDS ORDERED: OLANZapine ODT 5 MG TABLET TL STA (17:57)
[2018-06-13] MEDS ORDERED: HALOPERIDOL 5 MG/ML VIAL IM ONE (18:05)
[2018-06-13] MEDS ORDERED: diphenhydrAMINE INJ 50 MG/ML VIAL IM STA (18:05)
[2018-06-13] MEDS ORDERED: LORazepam 2 MG/ML VIAL IM STA (18:05)
[2018-06-13 18:46] LABS: BASOPHILS % (AUTO) 0.3 %; EOSINOPHILS # (AUTO) 0.1 10^3/uL (0.0-0.7); EOSINOPHILS % (AUTO) 1.6 %; HGB - HEMOGLOBIN 12.5 g/dL (12.0-16.0); LYMPHOCYTES # (AUTO) 1.6 10^3/uL (1.5-3.5); LYMPHOCYTES % (AUTO) 27.2 %; MEAN CORPUSCULAR HEMOGLOBIN 30.7 pg (27.0-31.0); MEAN CORPUSCULAR HGB CONC 34.6 g/dL (32.0-36.0); MEAN CORPUSCULAR VOLUME 88.9 fL (81.0-99.0); MEAN PLATELET VOLUME 7.4 fL (7.9-10.8); MONOCYTES # (AUTO) 0.5 10^3/uL (0.0-1.0); MONOCYTES % (AUTO) 7.7 %; NEUTROPHILS # (AUTO) 3.8 10^3/uL (1.5-6.6); NEUTROPHILS % (AUTO) 63.2 %; PLT - PLATELET COUNT 246 10^3/uL (130-450); RED BLOOD COUNT 4.07 10^6/uL (4.20-5.40); RED CELL DISTRIBUTION WIDTH 12.7 % (12.0-15.0)
[2018-06-13 19:02] LABS: ACETAMINOPHEN < 10 ug/mL (10-30); ALBUMIN/GLOBULIN RATIO 1.5 (1.0-2.2); ALKALINE PHOSPHATASE 40 IU/L (42-121); ALT ALANINE AMINOTRANSFERASE 17 IU/L (10-60); AST ASPARTATE AMINOTRANSFERASE 17 IU/L (10-42); BILIRUBIN,TOTAL 1.2 mg/dL (0.2-1.0); BUN - BLOOD UREA NITROGEN 14 mg/dL (6-20); CALCIUM 8.6 mg/dL (8.5-10.3); CARBON DIOXIDE - CO2 22 mmol/L (21-32); CHLORIDE 104 mmol/L (101-111); CREATININE 0.6 mg/dL (0.4-1.0); GFR - MDRD 116 (>89); GLUCOSE 88 mg/dL (70-100); LIPASE 22 U/L (22-51); SALICYLATE < 6.0 mg/dL; SODIUM 135 mmol/L (135-145); TOTAL PROTEIN 6.7 g/dL (6.7-8.2)
--- NOTE | 2018-06-13 19:25 | ED Physician Documentation ---
PD HPI MHE - Stated complaint Stated Complaint: MHE - Chief complaint Chief Complaint: MHE - Additional information Additional information: 32-year-old female was brought to the emergency department for mental health evaluation by police. The patient has been detained by the [facility] secondary to violating the the quarter terms. The patient currently appears quite agitated aggressive and is recently use drugs. The patient provides no history and is not cooperative Review of Systems Unable to obtain: Other (Acute mental healthExacerbation) PD PAST MEDICAL HISTORY - Past Medical History Past Medical History: Yes Respiratory: Asthma Psych: Bipolar disorder, Schizophrenia - Past Surgical History Past Surgical History: Yes - Present Medications Home Medications: Ambulatory Orders Medication Instructions Recorded Confirmed Cephalexin [Keflex] 500 mg PO BID #10 capsule 06/13/18 - Allergies Allergies/Adverse Reactions: Allergies Allergy/AdvReac Type Severity Reaction Status Date / Time ampicillin Allergy Hives Verified 06/13/18 17:55 - Social History Does the pt smoke?: Yes Smoking Status: Current every day smoker Does the pt drink ETOH?: No Does the pt have substance abuse?: Yes - Immunizations Immunizations are current?: No - POLST Patient has POLST: No PD ED PE NORMAL - General General: Other (The patient is alert, severely agitated not cooperative and appears to be) - HEENT HEENT: Atraumatic, PERRL, EOMI, Ears normal - Cardiac Cardiac: RRR, Strong equal pulses - Respiratory Respiratory: No respiratory distress - Abdomen Abdomen: Soft - Derm Derm: Normal color - Extremities Extremities: No deformity - Neuro Neuro: Other (The patient is alert, moving all 4 extremities) PD ED PE EXPANDED - Psych Psych: Agitated, Combative, Manic Results - Vitals Vitals: Vital Signs - 24 hr 06/13/18 06/13/18 06/13/18 17:52 19:38 22:27 Temperature 37.3 C Heart Rate 95 91 78 Respiratory 20 14 18 Rate Blood Pressure 137/82 H 100/63 103/75 O2 Saturation 97 97 99 Oxygen O2 Source Room air - Labs Labs: Laboratory Tests 06/13/18 06/13/18 06/13/18 18:43 18:43 20:05 WBC 6.0 RBC 4.07 L Hgb 12.5 Hct 36.2 L MCV 88.9 MCH 30.7 MCHC 34.6 RDW 12.7 Plt Count 246 MPV 7.4 L Neut # (Auto) 3.8 Lymph # (Auto) 1.6 [place] # (Auto) 0.5 Eos # (Auto) 0.1 Baso # (Auto) 0.0 Absolute Nucleated RBC 0.00 Nucleated RBC % 0.0 Sodium 135 Potassium 3.0 L Chloride 104 Carbon Dioxide 22 Anion Gap 9.0 BUN 14 Creatinine 0.6 Estimated GFR (MDRD) 116 Glucose 88 Calcium 8.6 Total Bilirubin 1.2 H AST 17 ALT 17 Alkaline Phosphatase 40 L Total Protein 6.7 Albumin 4.0 Globulin 2.7 Albumin/Globulin Ratio 1.5 Lipase 22 Urine Color YELLOW Urine Clarity HAZY Urine pH 6.0 Ur Specific [place] >=1.030 H Urine Protein 30 H Urine Glucose (UA) NEGATIVE Urine Ketones >=80 H Urine Occult Blood NEGATIVE Urine Nitrite POSITIVE H Urine Bilirubin NEGATIVE Urine Urobilinogen 0.2 (NORMAL) Ur Leukocyte Esterase TRACE H Urine RBC 0-5 Urine WBC 11-25 H Ur Epithelial Cells FEW Transitional Ur Squamous Epith Cells MANY Squamous H Urine Bacteria Many H Ur Microscopic Review INDICATED Urine Culture Comments NOT INDICATED Urine HCG, Qual Salicylates < 6.0 Urine Opiates Screen POSITIVE H Ur Oxycodone Screen NEGATIVE Urine Methadone Screen NEGATIVE Ur Propoxyphene Screen NEGATIVE Acetaminophen < 10 L Ur Barbiturates Screen NEGATIVE Ur Tricyclics Screen NEGATIVE Ur Phencyclidine Scrn NEGATIVE Ur Amphetamine Screen POSITIVE H U Methamphetamines Scrn POSITIVE H U Benzodiazepines Scrn POSITIVE H Urine Cocaine Screen NEGATIVE U Cannabinoids Screen NEGATIVE Ethyl Alcohol < 5.0 06/13/18 20:05 WBC RBC Hgb Hct MCV MCH MCHC RDW Plt Count MPV Neut # (Auto) Lymph # (Auto) [place] # (Auto) Eos # (Auto) Baso # (Auto) Absolute Nucleated RBC Nucleated RBC % Sodium Potassium Chloride Carbon Dioxide Anion Gap BUN Creatinine Estimated GFR (MDRD) Glucose Calcium Total Bilirubin AST ALT Alkaline Phosphatase Total Protein Albumin Globulin Albumin/Globulin Ratio Lipase Urine Color Urine Clarity Urine pH Ur Specific [place] >=1.030 H Urine Protein Urine Glucose (UA) Urine Ketones Urine Occult Blood Urine Nitrite Urine Bilirubin Urine Urobilinogen Ur Leukocyte Esterase Urine RBC Urine WBC Ur Epithelial Cells Ur Squamous Epith Cells Urine Bacteria Ur Microscopic Review Urine Culture Comments Urine HCG, Qual NEGATIVE Salicylates Urine Opiates Screen Ur Oxycodone Screen Urine Methadone Screen Ur Propoxyphene Screen Acetaminophen Ur Barbiturates Screen Ur Tricyclics Screen Ur Phencyclidine Scrn Ur Amphetamine Screen U Methamphetamines Scrn U Benzodiazepines Scrn Urine Cocaine Screen U Cannabinoids Screen Ethyl Alcohol - Rads (name of study) CT head Radiology: Final report received, See rad report PD MEDICAL DECISION MAKING - ED course ED course: The patient is medically stable The [facility] came and evaluated the patient and the patient currently is involuntary and detained. The patient has been placed at [facility] and will be transported by EMS in the morning. The patient has been stable since being medicated. 23:00 PM The patient's care will be turned over to the oncoming emergency physician Dr. Haji while the patient boards in the emergency department overnight. Departure - Departure Disposition: 65 Psych Hosp/Unit DC/Xfer Clinical Impression: Acute psychosis, Polysubstance abuse UTI (urinary tract infection) Qualifiers: Urinary tract infection type: site unspecified Hematuria presence: without hematuria Qualified Code(s): N39.0 - Urinary tract infection, site not specified Condition: Fair Prescriptions: Cephalexin [Keflex] 500 mg PO BID #10 capsule
--- NOTE | 2018-06-13 19:30 | CT Report ---
Reason: ams, Agitation, hallucination Procedure Date: 06/13/2018 Accession Number: [id number] / [id number] Procedure: CT - HEAD WO CPT Code: FULL RESULT: EXAM: CT HEAD EXAM DATE: 06/13/2018 07:11 PM. CLINICAL HISTORY: Ams, Agitation, hallucination. COMPARISON: None. TECHNIQUE: Multiaxial CT images were obtained from the foramen magnum to the vertex. Reformats: Sagittal and coronal. IV contrast: None. In accordance with CT protocol optimization, one or more of the following dose reduction techniques were utilized for this exam: automated exposure control, adjustment of mA and/or KV based on patient size, or use of iterative reconstructive technique. FINDINGS: Parenchyma: No intraparenchymal hemorrhage. No evidence of mass, midline shift, or CT findings of infarction. Hernandez-white differentiation is distinct. Extraaxial Spaces: Normal for age. No subdural or epidural collections identified. Ventricles: Normal in size and position. Sinuses and Orbits: Imaged paranasal sinuses, orbits, and mastoids show no significant abnormality. Bones: No evidence of fracture or calvarial defect. Other: None. IMPRESSION: No acute intracranial abnormality. RADIA
[2018-06-13 20:11] LABS: MUDS CUTOFF CONCENTRATIONS CUTOFF CONC BELOW:
[2018-06-13 20:14] LABS: BILIRUBIN,URINE NEGATIVE (NEGATIVE); GLUCOSE, URINE (UA) NEGATIVE (NEGATIVE); KETONES,URINE (UA) >=80 mg/dL (NEGATIVE); LEUKOCYTE ESTERASE, URINE TRACE (NEGATIVE); NITRITE,URINE POSITIVE (NEGATIVE); OCCULT BLOOD,URINE NEGATIVE (NEGATIVE); PROTEIN,URINE 30 mg/dL (NEGATIVE); UROBILINOGEN,URINE 0.2 (NORMAL) E.U./dL (NORMAL)
[2018-06-13 20:24] LABS: CLARITY,URINE HAZY (CLEAR); HCG UR QUAL NEGATIVE
[2018-06-13 20:25] LABS: BACTERIA,URINE Many /HPF (None Seen); EPITHELIAL CELLS,UR FEW Transitional /HPF (<= Few); RBC,URINE 0-5 /HPF (0-5); SQUAMOUS EPITHELIAL CELL,UR MANY Squamous (<= Few)
[2018-06-13 20:27] LABS: AMPHETAMINE SCREEN,URINE POSITIVE (NEGATIVE); BENZODIAZEPINES SCREEN, URINE POSITIVE (NEGATIVE); COCAINE SCREEN URINE NEGATIVE (NEGATIVE); METHADONE SCREEN, URINE NEGATIVE (NEGATIVE); METHAMPHETAMINES SCREEN, URINE POSITIVE (NEGATIVE); OPIATE SCREEN, URINE POSITIVE (NEGATIVE); OXYCODONE SCREEN, URINE NEGATIVE (NEGATIVE); PROPOXYPHENE SCREEN, URINE NEGATIVE (NEGATIVE); TRICYCLIC ANTIDEPRESSANT,URINE NEGATIVE (NEGATIVE)
[2018-06-13] MEDS ORDERED: cefTRIAXone 1 GM in SODIUM CHLORIDE 0.9% MINIBAG 100 ML IV STA (20:38)
[2018-06-13] MEDS ORDERED: POTASSIUM CHLOR 20 MEQ/100 ML 20 MEQ/100 ML BAG IV ONE (20:40)
[2018-06-14 08:41] VITALS: BP 109/60
== END 2018-06-14 09:20 ==
LOC: EDUNIT# → ED 17:46
DX: F23 Brief psychotic disorder (principal); F19.10 Other psychoactive substance abuse, uncomplicated; N39.0 Urinary tract infection, site not specified; F31.9 Bipolar disorder, unspecified; F17.200 Nicotine dependence, unspecified, uncomplicated
CPT/HCPCS: 36415; 70450; 80053; 80306; 80307; 80320; 80329; 81001; 81025; 83690; 85025; 96365; 96367; 96372; 99284; J1200; J2060; 81003; 87086

== ENCOUNTER 2018-08-19 14:19 | Emergency (ER) | payer MEDICAID ==
[2018-08-19 14:36] VITALS: BP 138/88
== END 2018-08-19 14:53 | disposition left against medical advice (07) ==
LOC: ED 14:19
DX: Z53.21 Procedure and treatment not carried out due to patient leaving prior to being seen by health care provider (principal)

== ENCOUNTER 2018-08-19 15:51 | Emergency (ER) | payer MEDICAID ==
[2018-08-19 16:04] VITALS: BP 121/90
--- NOTE | 2018-08-19 16:09 | ED Physician Documentation ---
History of Present Illness - Stated complaint Stated Complaint: INFUSION - Chief complaint Chief Complaint: General - History obtained from History obtained from: Patient, Caregiver - History of Present Illness Timing: Today - Additonal information Additional information: 33-year-old female with a history of schizoaffective disorder is on an injectable long-acting antipsychotic and they were unable to provide this injection for these patient as there was no provider in the clinic today at [facility]. They were and unable to get an order for this to be done at the [facility] so she has come to the emergency department. She initially came to the emergency department but after initial confrontation she eloped and she has returned with her showcase trimmer to the emergency department and now has submitted to the injection. Review of Systems Unable to obtain: Confused PD PAST MEDICAL HISTORY - Past Medical History Respiratory: Asthma Psych: Bipolar disorder, Schizophrenia - Past Surgical History Past Surgical History: Yes - Present Medications Home Medications: Ambulatory Orders Medication Instructions Recorded Confirmed Cephalexin [Keflex] 500 mg PO BID #10 capsule 06/13/18 - Allergies Allergies/Adverse Reactions: Allergies Allergy/AdvReac Type Severity Reaction Status Date / Time ampicillin Allergy Hives Verified 08/19/18 16:04 - Social History Does the pt smoke?: Yes Smoking Status: Current every day smoker Does the pt drink ETOH?: No Does the pt have substance abuse?: Yes - Immunizations Immunizations are current?: No - POLST Patient has POLST: No PD ED PE NORMAL - Vitals Vital signs reviewed: Yes (tachy and hypertensive ) - General General: No acute distress, Well developed/nourished - HEENT HEENT: Atraumatic, PERRL, EOMI - Respiratory Respiratory: No respiratory distress - Derm Derm: Normal color, Warm and dry, No rash - Extremities Extremities: No deformity, No edema - Neuro Neuro: personnel consultant 2-12 intact, No motor deficit, No sensory deficit, Normal speech Eye Opening: Spontaneous Motor: Obeys Commands Verbal: Confused GCS Score: 14 - Psych Psych: Normal mood, Normal affect Results - Vitals Vitals: Vital Signs - 24 hr 08/19/18 16:02 Temperature 36.4 C L Heart Rate 104 H Respiratory 18 Rate Blood Pressure 121/90 H O2 Saturation 98 Oxygen O2 Source Room air PD MEDICAL DECISION MAKING - ED course Complexity details: considered differential, d/w patient ED course: 33-year-old psychotic female with a long-acting injectable antipsychotic applied by the RN here. Departure - Departure Disposition: 01 Home, Self Care Clinical Impression: Psychosis Condition: Stable Instructions: ED Psychosis Follow-Up: [facility] [Provider Group] Discharge Date/Time: 08/19/18 16:25
== END 2018-08-19 16:25 | disposition home or self-care (01) ==
LOC: ED 15:51
DX: Z76.89 Persons encountering health services in other specified circumstances (principal); F29 Unspecified psychosis not due to a substance or known physiological condition; F20.9 Schizophrenia, unspecified; F17.200 Nicotine dependence, unspecified, uncomplicated
CPT/HCPCS: 99282; 99283

== ENCOUNTER 2018-09-03 10:51 | Outpatient (CLI) | payer MEDICAID | END 2018-09-03 10:52 | disposition critical access hospital (66) | LOC: EMS 10:51 | PROVIDERS: ATTEND Surgery | DX: R45.851 Suicidal ideations (principal) | CPT/HCPCS: A0425; A0429 ==

== ENCOUNTER 2018-09-03 11:20 | Emergency (ER) | payer MEDICAID ==
[2018-09-03 11:53] LABS: BILIRUBIN,URINE NEGATIVE (NEGATIVE); CLARITY,URINE CLEAR (CLEAR); GLUCOSE, URINE (UA) NEGATIVE (NEGATIVE); KETONES,URINE (UA) NEGATIVE (NEGATIVE); LEUKOCYTE ESTERASE, URINE NEGATIVE (NEGATIVE); NITRITE,URINE NEGATIVE (NEGATIVE); OCCULT BLOOD,URINE NEGATIVE (NEGATIVE); PH,URINE 7.5 PH (5.0-7.5); PROTEIN,URINE NEGATIVE (NEGATIVE); UROBILINOGEN,URINE 0.2 (NORMAL) E.U./dL (NORMAL)
[2018-09-03 11:54] LABS: HCG UR QUAL NEGATIVE; MUDS CUTOFF CONCENTRATIONS CUTOFF CONC BELOW:
[2018-09-03 11:56] LABS: BASOPHILS % (AUTO) 0.6 %; EOSINOPHILS # (AUTO) 0.1 10^3/uL (0.0-0.7); EOSINOPHILS % (AUTO) 1.9 %; HGB - HEMOGLOBIN 14.6 g/dL (12.0-16.0); LYMPHOCYTES # (AUTO) 0.8 10^3/uL (1.5-3.5); LYMPHOCYTES % (AUTO) 19.8 %; MEAN CORPUSCULAR HEMOGLOBIN 30.2 pg (27.0-31.0); MEAN CORPUSCULAR HGB CONC 33.1 g/dL (32.0-36.0); MEAN CORPUSCULAR VOLUME 91.2 fL (81.0-99.0); MEAN PLATELET VOLUME 7.3 fL (7.9-10.8); MONOCYTES # (AUTO) 0.3 10^3/uL (0.0-1.0); MONOCYTES % (AUTO) 6.9 %; NEUTROPHILS # (AUTO) 2.8 10^3/uL (1.5-6.6); NEUTROPHILS % (AUTO) 70.8 %; PLT - PLATELET COUNT 267 10^3/uL (130-450); RED BLOOD COUNT 4.83 10^6/uL (4.20-5.40); RED CELL DISTRIBUTION WIDTH 11.7 % (12.0-15.0); WHITE BLOOD COUNT 3.9 x10^3/uL (4.8-10.8)
[2018-09-03 12:03] LABS: AMPHETAMINE SCREEN,URINE POSITIVE (NEGATIVE); BENZODIAZEPINES SCREEN, URINE POSITIVE (NEGATIVE); COCAINE SCREEN URINE NEGATIVE (NEGATIVE); METHADONE SCREEN, URINE NEGATIVE (NEGATIVE); METHAMPHETAMINES SCREEN, URINE POSITIVE (NEGATIVE); OPIATE SCREEN, URINE POSITIVE (NEGATIVE); OXYCODONE SCREEN, URINE NEGATIVE (NEGATIVE); PROPOXYPHENE SCREEN, URINE NEGATIVE (NEGATIVE); TRICYCLIC ANTIDEPRESSANT,URINE NEGATIVE (NEGATIVE)
[2018-09-03 12:10] LABS: ACETAMINOPHEN < 10 ug/mL (10-30); ALBUMIN 4.1 g/dL (3.2-5.5); ALBUMIN/GLOBULIN RATIO 1.2 (1.0-2.2); ALKALINE PHOSPHATASE 44 IU/L (42-121); ALT ALANINE AMINOTRANSFERASE 17 IU/L (10-60); AST ASPARTATE AMINOTRANSFERASE 19 IU/L (10-42); BILIRUBIN,TOTAL 0.5 mg/dL (0.2-1.0); BUN - BLOOD UREA NITROGEN 7 mg/dL (6-20); CALCIUM 9.2 mg/dL (8.5-10.3); CARBON DIOXIDE - CO2 26 mmol/L (21-32); CHLORIDE 101 mmol/L (101-111); CREATININE 0.5 mg/dL (0.4-1.0); GFR - MDRD 142 (>89); GLUCOSE 104 mg/dL (70-100); LIPASE 25 U/L (22-51); SALICYLATE < 6.0 mg/dL; SODIUM 137 mmol/L (135-145); TOTAL PROTEIN 7.6 g/dL (6.7-8.2)
[2018-09-03] MEDS ORDERED: LORazepam 1 MG TABLET PO STA ×2 (12:19→18:29)
--- NOTE | 2018-09-03 12:19 | ED Physician Documentation ---
PD HPI MHE - Stated complaint Stated Complaint: MHE - Chief complaint Chief Complaint: MHE - History obtained from History obtained from: Patient - History of Present Illness Primary symptom: Suicidal ideation (33-year-old woman who has a history of psychosis and depression presents with 2 days of suicidal ideation with thoughts of overdosing. She recently stopped Wellbutrin and was starting another medication on the advice of her psychiatrist but it is not working. She also admits to using methamphetamines and heroin, last use was 2 to 3 days ago.) Review of Systems Ten Systems: 10 systems reviewed and negative Constitutional: reports: Reviewed and negative Throat: reports: Reviewed and negative Cardiac: reports: Reviewed and negative Respiratory: reports: Reviewed and negative PD PAST MEDICAL HISTORY - Past Medical History Respiratory: Asthma Psych: Bipolar disorder, Schizophrenia - Past Surgical History Past Surgical History: Yes - Allergies Allergies/Adverse Reactions: Allergies Allergy/AdvReac Type Severity Reaction Status Date / Time ampicillin Allergy Hives Verified 09/03/18 11:36 cephalexin [From Keflex] Allergy Hives Verified 09/03/18 11:36 - Social History Does the pt smoke?: Yes Smoking Status: Current every day smoker Does the pt drink ETOH?: No Does the pt have substance abuse?: Yes - Family History Family history: reports: Non contributory - Immunizations Immunizations are current?: No - POLST Patient has POLST: No PD ED PE NORMAL - Vitals Vital signs reviewed: Yes - General General: Alert and oriented X 3, No acute distress - HEENT HEENT: PERRL, EOMI - Neck Neck: Supple, no meningeal sign, No bony TTP - Cardiac Cardiac: RRR, No murmur - Respiratory Respiratory: No respiratory distress, Clear bilaterally - Abdomen Abdomen: Normal bowel sounds, Soft, Non tender - Back Back: No CVA TTP, No spinal TTP - Derm Derm: Normal color, Warm and dry - Extremities Extremities: No edema, No calf tenderness / cord - Neuro Neuro: Alert and oriented X 3, Normal speech Results - Vitals Vitals: Vital Signs - 24 hr 09/03/18 09/03/18 09/03/18 11:23 14:20 20:04 Temperature 36.4 C L 36.8 C Heart Rate 95 84 101 H Respiratory 14 16 15 Rate Blood Pressure 119/73 101/59 L 129/62 O2 Saturation 99 99 98 Oxygen O2 Source Room air - Labs Labs: Laboratory Tests 09/03/18 09/03/18 09/03/18 11:44 11:44 11:45 WBC 3.9 L RBC 4.83 Hgb 14.6 Hct 44.0 MCV 91.2 MCH 30.2 MCHC 33.1 RDW 11.7 L Plt Count 267 MPV 7.3 L Neut # (Auto) 2.8 Lymph # (Auto) 0.8 L Love # (Auto) 0.3 Eos # (Auto) 0.1 Baso # (Auto) 0.0 Absolute Nucleated RBC 0.00 Nucleated RBC % 0.0 Sodium Potassium Chloride Carbon Dioxide Anion Gap BUN Creatinine Estimated GFR (MDRD) Glucose Calcium Total Bilirubin AST ALT Alkaline Phosphatase Total Protein Albumin Globulin Albumin/Globulin Ratio Lipase TSH Urine Color YELLOW Urine Clarity CLEAR Urine pH 7.5 Ur Specific [place] 1.015 Urine Protein NEGATIVE Urine Glucose (UA) NEGATIVE Urine Ketones NEGATIVE Urine Occult Blood NEGATIVE Urine Nitrite NEGATIVE Urine Bilirubin NEGATIVE Urine Urobilinogen 0.2 (NORMAL) Ur Leukocyte Esterase NEGATIVE Ur Microscopic Review NOT INDICATED Urine Culture Comments NOT INDICATED Urine HCG, Qual NEGATIVE Salicylates Urine Opiates Screen POSITIVE H Ur Oxycodone Screen NEGATIVE Urine Methadone Screen NEGATIVE Ur Propoxyphene Screen NEGATIVE Acetaminophen Ur Barbiturates Screen NEGATIVE Ur Tricyclics Screen NEGATIVE Ur Phencyclidine Scrn NEGATIVE Ur Amphetamine Screen POSITIVE H U Methamphetamines Scrn POSITIVE H U Benzodiazepines Scrn POSITIVE H Urine Cocaine Screen NEGATIVE U Cannabinoids Screen NEGATIVE Ethyl Alcohol 09/03/18 09/03/18 11:45 11:45 WBC RBC Hgb Hct MCV MCH MCHC RDW Plt Count MPV Neut # (Auto) Lymph # (Auto) Love # (Auto) Eos # (Auto) Baso # (Auto) Absolute Nucleated RBC Nucleated RBC % Sodium 137 Potassium 3.7 Chloride 101 Carbon Dioxide 26 Anion Gap 10.0 BUN 7 Creatinine 0.5 Estimated GFR (MDRD) 142 Glucose 104 H Calcium 9.2 Total Bilirubin 0.5 AST 19 ALT 17 Alkaline Phosphatase 44 Total Protein 7.6 Albumin 4.1 Globulin 3.5 Albumin/Globulin Ratio 1.2 Lipase 25 TSH 1.77 Urine Color Urine Clarity Urine pH Ur Specific [place] Urine Protein Urine Glucose (UA) Urine Ketones Urine Occult Blood Urine Nitrite Urine Bilirubin Urine Urobilinogen Ur Leukocyte Esterase Ur Microscopic Review Urine Culture Comments Urine HCG, Qual Salicylates < 6.0 Urine Opiates Screen Ur Oxycodone Screen Urine Methadone Screen Ur Propoxyphene Screen Acetaminophen < 10 L Ur Barbiturates Screen Ur Tricyclics Screen Ur Phencyclidine Scrn Ur Amphetamine Screen U Methamphetamines Scrn U Benzodiazepines Scrn Urine Cocaine Screen U Cannabinoids Screen Ethyl Alcohol < 5.0 PD MEDICAL DECISION MAKING - ED course ED course: Seen by [employer], arranged for bed at [facility] tomorrow, can arrive at 10am, accepting MD is Dagoberto Clifford. Departure - Departure Disposition: 65 Psych Hosp/Unit DC/Xfer Clinical Impression: Suicidal ideation, Acute psychosis Condition: Fair
[2018-09-04 09:31] VITALS: BP 135/105
[2018-09-04] MEDS ORDERED: LORazepam 1 MG TABLET PO STA (09:32)
== END 2018-09-04 09:46 ==
LOC: EDUNIT# → ED 11:20
DX: F32.3 Major depressive disorder, single episode, severe with psychotic features (principal); R45.851 Suicidal ideations; F11.10 Opioid abuse, uncomplicated; F15.10 Other stimulant abuse, uncomplicated; F17.200 Nicotine dependence, unspecified, uncomplicated
CPT/HCPCS: 36415; 80053; 80306; 80307; 80320; 80329; 81003; 81025; 83690; 84443; 85025; 99284; 99285; J8499; 81001; 87086

== ENCOUNTER 2018-09-28 14:43 | Outpatient (CLI) | payer MEDICAID | END 2018-09-28 14:53 | disposition EMS.NT | LOC: EMS 14:43 | PROVIDERS: ATTEND Surgery | DX: Z03.89 Encounter for observation for other suspected diseases and conditions ruled out (principal) ==